=== PATIENT | female | born 1965 | race African-American/Black ===

== ENCOUNTER 2017-02-07 15:21 | Emergency (ER) | payer BC, OTHER ==
[2017-02-07 15:53] VITALS: BP 135/83; PULSE 116; RESP 16; TEMP 97.6
--- NOTE | 2017-02-07 16:16 | ED ---
ENT HPI - General Chief complaint: ENT Stated complaint: sinus infection Time Seen by Provider: 02/07/17 16:05 Source: patient, RN notes reviewed Mode of arrival: ambulatory Limitations: no limitations - History of Present Illness Initial comments: 51 yo female presents to the Er with cc of facial pressure and sinus drainage. Patient states she's been sick for about 2-3 days. Patient denies any fever. Patient denies any shortness of breath but states she has had a cough with this. Patient denies any ear pain. Patient states she was concerned due to the continued nasal drainage in the facial pressure so she thought that she should be evaluated. Patient states that she is not currently having any other symptoms at this time.Patient denies any recent fever, chills, shortness of breath, chest pain, back pain, abdominal pain, nausea vomiting, numbness or tingling, dysuria or hematuria, constipation or diarrhea, headaches or visual changes, or any other current symptoms. - Related Data Home Medications Medication Instructions Recorded Confirmed Phentermine HCl 37.5 mg PO DAILY 02/07/17 02/07/17 Pnv with Ca,No.72/Iron/FA 1 each PO DAILY 02/07/17 02/07/17 [ Plus Tablet] Previous Rx's Medication Instructions Recorded Amoxicillin/Potassium Clav 1 tab PO Q12HR #20 tab 02/07/17 [Augmentin 875-125 Tablet] Oxymetazoline 0.05% Nasl [place] 2 spray EA NOSTRIL BID 3 Days 02/07/17 [Afrin 0.05% Nasal [place]] predniSONE 50 mg PO DAILY #5 tab 02/07/17 Allergies Allergy/AdvReac Type Severity Reaction Status Date / Time No Known Allergies Allergy Verified 02/07/17 15:53 Review of Systems ROS Statement: Those systems with pertinent positive or pertinent negative responses have been documented in the HPI. ROS Other: All systems not noted in ROS Statement are negative. Past Medical History Past Medical History: Fibromyalgia, Osteoarthritis (OA) History of Any Multi-Drug Resistant Organisms: None Reported Past Surgical History: Section, Hysterectomy Past Psychological History: No Psychological Hx Reported Smoking Status: Never smoker Past Alcohol Use History: None Reported Past Drug Use History: None Reported General Exam - General Exam Comments Initial Comments: General exam: Alert, active, comfortable in no apparent distress Head: Normocephalic, tenderness over bilateral maxillary and frontal sinus to palpation. Eyes: Normal reaction of pupils, equal size, normal range of extraocular motion Ears: normal external ear canals, pink tympanic membranes with normal cone of light Nose: clear with pink turbinates Throat: no erythema or exudates with normal sized tonsils Neck: no masses, no nuchal rigidity Chest: no chest wall deformity Lungs: equal air entry with no crackles or wheeze CVS: S1 and S2 normal with no audible mumurs, regular rhythm Abdomen: no hepatosplenomegaly, normal bowel sounds, no guarding or rigidity Spine: no scoliosis or deformity Skin: no rashes Neurological: No focal deficits, tone is normal in all 4 extremities Limitations: no limitations Course Vital Signs 02/07/17 15:49 Temperature 97.6 F Pulse Rate 116 H Respiratory 16 Rate Blood Pressure 135/83 O2 Sat by Pulse 99 Oximetry Medical Decision Making - Medical Decision Making 51-year-old female presents emergency department appears to be sinusitis. we will start the patient a course of steroids and nasal spray to help with her symptoms. We did discuss that she does not mean she within the next 710 days. We will give her a prescription to start a 57 today 10 days she is not feeling better. Patient states she just a couple this plan all her questions have been answered. This time she will be discharged home. Disposition Clinical Impression: Acute sinusitis Disposition: HOME SELF-CARE Condition: Stable Instructions: Sinusitis (ED) Additional Instructions: Please use medication as discussed. Please follow up with family doctor if symptoms have not improved over the next two days. Please return to the emergency room if your symptoms increase or worsen or for any other concerns. if in 7-10 days to continue to have the same symptoms haven't started antibiotic she should see at this point. Prescriptions: Amoxicillin/Potassium Clav [Augmentin 875-125 Tablet] 1 tab PO Q12HR #20 tab Oxymetazoline 0.05% Nasl [place] [Afrin 0.05% Nasal [place]] 2 spray EA NOSTRIL BID 3 Days predniSONE 50 mg PO DAILY #5 tab Referrals: Daina Ulrich MD [STAFF PHYSICIAN] - 1-2 days Time of Disposition: 16:23
== END 2017-02-07 16:33 | disposition home or self-care (01) ==
LOC: EC 15:21
DX: J01.90 Acute sinusitis, unspecified (principal); Z79.899 Other long term (current) drug therapy
CPT/HCPCS: 99283

== ENCOUNTER 2017-02-27 10:56 | Emergency (ER) | payer OTHER ==
[2017-02-27 11:06] VITALS: RESP 16
--- NOTE | 2017-02-27 11:57 | ED ---
Extremity Problem HPI - General Chief complaint: Extremity Problem,Nontraumatic Stated complaint: knee swelling Time Seen by Provider: 02/27/17 11:18 Source: patient, RN notes reviewed Mode of arrival: ambulatory Limitations: no limitations - History of Present Illness Initial comments: 51-year-old female presents emergency Department chief complaint left knee pain. Patient states she's had pain for last month had x-rays were primary care physician told her that she had arthritis sent to physical therapy. Patient has been undergoing physical therapy with no improvement. She states she has pain behind her left knee, left calf region. Patient states that she has no history DVT. Patient denies any chest pain or shortness breath. Patient states that she has increased pain which she indicates and feels that her left knee is swollen. Patient's been taking some [id number] Tylenol with some relief of the pain. - Related Data Home Medications Medication Instructions Recorded Confirmed Phentermine HCl 18.75 mg PO DAILY 02/07/17 02/27/17 Pnv with Ca,No.72/Iron/FA 1 tab PO DAILY 02/07/17 02/27/17 [ Plus Tablet] Previous Rx's Medication Instructions Recorded Ibuprofen [Motrin] 600 mg PO Q8HR PRN #30 tab 02/27/17 Allergies Allergy/AdvReac Type Severity Reaction Status Date / Time No Known Allergies Allergy Verified 02/27/17 11:33 Review of Systems ROS Statement: Those systems with pertinent positive or pertinent negative responses have been documented in the HPI. ROS Other: All systems not noted in ROS Statement are negative. Past Medical History Past Medical History: Fibromyalgia, Osteoarthritis (OA) History of Any Multi-Drug Resistant Organisms: None Reported Past Surgical History: Section, Hysterectomy Past Psychological History: No Psychological Hx Reported Smoking Status: Never smoker Past Alcohol Use History: None Reported Past Drug Use History: None Reported General Exam Limitations: no limitations General appearance: alert, in no apparent distress Head exam: Present: atraumatic, normocephalic, normal inspection Respiratory exam: Present: normal lung sounds bilaterally. Absent: respiratory distress, wheezes, rales, rhonchi, stridor Cardiovascular Exam: Present: regular rate, normal rhythm, normal heart sounds. Absent: systolic murmur, diastolic murmur, rubs, gallop, clicks Extremities exam: Present: other (Left knee full range of motion neurovascular intact there is mild edema no no warmth no rashes noted no laxity negative anterior posterior drawer there is some tenderness in the popliteal region) Skin exam: Present: warm, dry, intact, normal color. Absent: rash Course Vital Signs 02/27/17 11:04 Temperature 98.1 F Pulse Rate 104 H Respiratory 16 Rate Blood Pressure 122/86 O2 Sat by Pulse 97 Oximetry Medical Decision Making - Medical Decision Making 51-year-old female presented for left knee pain. Patient has no evidence DVT. Patient had x-rays which showed arthritic changes. Patient was given ibuprofen at this time. Patient will follow-up with on-call orthopedic surgeon. Return parameters were discussed. Disposition Clinical Impression: Left knee pain Disposition: HOME SELF-CARE Condition: Stable Instructions: Knee Pain (ED) Additional Instructions: Please return to the Emergency Department if symptoms worsen or any other concerns. Prescriptions: Ibuprofen [Motrin] 600 mg PO Q8HR PRN #30 tab PRN Reason: Pain Referrals: Nonstaff,Physician [Primary Care Provider] - 1-2 days Daryn Soni DO [Doctor of Osteopathic Medicine] - 1-2 days Time of Disposition: 12:37
[2017-02-27 12:59] VITALS: BP 130/82; PULSE 90; TEMP 98
--- NOTE | 2017-02-27 13:20 | US ---
EXAMINATION TYPE: US venous doppler duplex LE LT DATE OF EXAM: 02/27/2017 12:11 PM COMPARISON: NONE CLINICAL HISTORY: 51-year-old female with Pain. Left knee pain and swelling. No history of blood annetta ts or on blood thinners SIDE PERFORMED: Left TECHNIQUE: The lower extremity deep venous system is examined utilizing real time linear array sonog italo with graded compression, doppler sonography and color-flow sonography. FINDINGS: VESSELS IMAGED: External Iliac Vein (EIV) Common Femoral Vein Deep Femoral Vein Greater Saphenous Vein * Femoral Vein Popliteal Vein Small Saphenous Vein * Proximal Calf Veins (* superficial vessels) Left Leg: Appears negative for DVT IMPRESSION: No evidence of acute DVT within the left lower extremity imaged from the groin to the upper calf.
== END 2017-02-27 13:01 | disposition home or self-care (01) ==
LOC: EC 10:56
DX: M17.12 Unilateral primary osteoarthritis, left knee (principal); Z79.899 Other long term (current) drug therapy
CPT/HCPCS: 99283